=== PATIENT | female | born 1965 | race African-American/Black ===

== ENCOUNTER 2024-03-05 17:58 | Emergency (ER) | payer MEDICAID ==
[~2024-03-05] VITALS: Ht 177.8 cm; Wt 90.0 kg
[2024-03-05 18:06] VITALS: BP 188/97; PULSE 90; RESP 16; TEMP 98.7; O2SAT 99
[2024-03-05] MEDS ORDERED: HYDROCODONE/ACETAMINOPHEN 5/325MG TABLET PO STA (18:49)
[2024-03-05] MEDS: ONDANSETRON HCL 4MG/2ML INJ IV STA (18:49)
[2024-03-05] MEDS: SODIUM CHLORIDE 0.9% 1,000 ML IV ONE (19:00)
[2024-03-05 20:45] LABS: CHLORIDE 106 mEq/L (98-107); POTASSIUM 3.5 mEq/L (3.5-5.1); SODIUM 138 mEq/L (136-145)
[2024-03-05 20:46] LABS: BASOPHILS % 0.1 % (0.0-2.0); CARBON DIOXIDE 24 mEq/L (21-32); EOSINOPHILS % 0.1 % (0.0-5.0); HEMATOCRIT. 44.1 % (36.0-48.0); HEMOGLOBIN. 14.9 g/dL (12.0-16.0); LYMPHOCYTES % 11.8 % (20.0-50.0); MEAN CORPUSCULAR HEMOGLOBIN 28.8 pg (28.0-32.0); MEAN CORPUSCULAR HGB CONC 33.7 g/dL (31.0-37.0); MEAN CORPUSCULAR VOLUME 85.6 fL (81.0-99.0); MONOCYTES % 5.7 % (2.0-8.0); NEUTROPHILS % 82.3 % (40.0-76.0); PLATELET 158 x1000/uL (130-400); RED BLOOD CELL COUNT 5.16 mill/uL (4.2-5.4); RED CELL DISTRIBUTION WIDTH 13.1 % (11.6-14.6)
[2024-03-05 20:47] LABS: CALCIUM 9.9 mg/dL (8.7-10.4)
[2024-03-05 20:51] LABS: CREATININE 0.9 mg/dL (0.6-1.0)
[2024-03-05 20:52] LABS: GLUCOSE 108 mg/dL (70-105); UREA NITROGEN BLOOD 10 mg/dL (9-23)
[2024-03-05 20:53] LABS: ALANINE AMINOTRANSFERASE 17 IU/L (10-49); ASPARTATE AMINOTRANSFERASE 16 IU/L (<34)
[2024-03-05 20:54] LABS: ALBUMIN 4.7 g/dL (3.2-4.8); BILIRUBIN DIRECT 0.1 mg/dL (<=3.0); BILIRUBIN TOTAL 0.5 mg/dL (0.1-1.0); PROTEIN TOTAL 7.9 g/dL (6.0-8.3)
[2024-03-05 21:05] LABS: ETHANOL BLOOD < 10 mg/dL (<10)
[2024-03-05] MEDS: HYDRALAZINE HCL 10MG TABLET PO NR (22:15)
[2024-03-05] MEDS: MECLIZINE 25MG TABLET PO NR (22:15)
[2024-03-05 23:15] LABS: TROPONIN I HIGH SENSITIVITY < 4 ng/L (3.0-34)
[2024-03-05] MEDS: ONDANSETRON HCL 4MG/2ML INJ IV NR (23:45)
[2024-03-05] MEDS: HYDROCODONE/ACETAMINOPHEN 5/325MG TABLET PO NR (23:45)
[2024-03-06] MEDS ORDERED: NAPR-681 PO (00:20)
[2024-03-06] MEDS ORDERED: MECL-299 MT (00:20)
== END 2024-03-06 03:16 | disposition home or self-care (01) ==
LOC: ER 17:58
DX: H81.10 Benign paroxysmal vertigo, unspecified ear (principal); M47.812 Spondylosis without myelopathy or radiculopathy, cervical region; R55 Syncope and collapse; H91.92 Unspecified hearing loss, left ear; Z88.0 Allergy status to penicillin
CPT/HCPCS: 80076; 80048; 80320; 83880; 83690; 85025; 85610; 84484; 36415; 71045; 70450; 72125; 99284; J8597; J7030; G0480